=== PATIENT | female | born 1955 | race Caucasian/White ===

== ENCOUNTER 2017-01-23 20:11 | Emergency (ER) | payer BC ==
[~2017-01-23] VITALS: Ht 162.6 cm; Wt 78.5 kg
[~2017-01-23 20:11] MED LIST: CLEOCIN HCL300 MG PO; IBUPROFEN; PREVACID30 M1 PO; ZANAFLEX2 M1 PO
[2017-01-23] MEDS ORDERED: HYDROCHLOROTH12.5 M1 PO (20:16)
[2017-01-23] MEDS ORDERED: ZANTAC 150MG T150 MG PO (20:16)
[2017-01-23 20:43] LABS: URINE BILIRUBIN NEGATIVE (Negative); URINE BLOOD TRACE (Negative); URINE COLOR YELLOW; URINE GLUCOSE-RANDOM* NEGATIVE (Negative); URINE KETONES NEGATIVE (Negative); URINE NITRITE NEGATIVE (Negative); URINE PROTEIN (DIPSTICK) NEGATIVE (Negative); URINE SPECIFIC GRAVITY 1.015 (1.003-1.035)
[2017-01-23 20:49] LABS: ABSOLUTE NEUTROPHILS 4.6 thou/uL (1.4-8.2); BASOPHILS 0.6 % (0.0-2.0); EOSINOPHILS 2.2 % (0.0-3.0); HEMATOCRIT 40.6 % (37.0-47.0); HEMOGLOBIN 13.5 gm/dL (12.0-15.0); LYMPHOCYTES 33.2 % (24.0-44.0); MCH 25.9 pg (26.0-34.0); MCHC 33.2 g/dL (28.0-37.0); MONOCYTES 7.9 % (1.0-8.0); PLATELET COUNT 188 thou/uL (150-400); POLYS 56.1 % (36.0-66.0); RDW 13.1 % (10.5-14.5); WBC 8.1 thou/uL (4.0-11.0)
[2017-01-23 20:50] LABS: MANUAL DIFF NO
[2017-01-23 20:52] LABS: CASTS None Seen /LPF (None Seen); SQUAMOUS None Seen /LPF (0-3); URINE WBC 6-15 Few /HPF (0-5)
[2017-01-23 20:53] LABS: BACTERIA None Seen /HPF (None Seen); CRYSTALS None Seen /LPF (None Seen); URINE RBC None Seen /HPF (0-2)
[2017-01-23 20:57] LABS: CREATININE 0.9 mg/dL (0.6-1.0); POTASSIUM 3.4 mmol/L (3.5-5.1)
[2017-01-23] MEDS ORDERED: BACTRIM DS TAB1 EACH PO (21:42)
[2017-01-23 21:59] VITALS: BP 139/89
== END 2017-01-23 23:30 | disposition home or self-care (01) ==
LOC: ER 20:11
PROVIDERS: Nurse Practitioner
DX: N39.0 Urinary tract infection, site not specified (principal); K59.00 Constipation, unspecified; K58.9 Irritable bowel syndrome, unspecified; F17.210 Nicotine dependence, cigarettes, uncomplicated; F10.99 Alcohol use, unspecified with unspecified alcohol-induced disorder; Z88.6 Allergy status to analgesic agent

== ENCOUNTER 2021-08-28 18:23 | Emergency (ER) | payer OTHER, BC ==
[~2021-08-28] VITALS: Ht 162.6 cm; Wt 72.6 kg
[~2021-08-28 18:23] MED LIST changes: +BACTRIM DS TAB1 EACH PO; +HYDROCHLOROTH12.5 M1 PO; +ZANTAC 150MG T150 MG PO
[2021-08-28 20:36] VITALS: BP 129/81
== END 2021-08-28 20:38 | disposition home or self-care (01) ==
LOC: ER 18:23
DX: S16.1XXA Strain of muscle, fascia and tendon at neck level, initial encounter (principal); S09.90XA Unspecified injury of head, initial encounter; I10 Essential (primary) hypertension; F17.210 Nicotine dependence, cigarettes, uncomplicated; Z79.899 Other long term (current) drug therapy; Z88.5 Allergy status to narcotic agent; X58.XXXA Exposure to other specified factors, initial encounter; Y93.89 Activity, other specified; Y92.89 Other specified places as the place of occurrence of the external cause; Y99.8 Other external cause status